=== PATIENT | male | born 1990 | race African-American/Black ===

== ENCOUNTER 2025-09-10 23:41 | Emergency (ER) | payer MEDICAID ==
[~2025-09-10] VITALS: Ht 180.3 cm; Wt 107.0 kg
[2025-09-10 23:43] VITALS: O2SAT 98
[2025-09-11] MEDS: ACETAMINOPHEN 325MG TABLET PO ONE (00:29)
[2025-09-11] MEDS: METHOCARBAMOL 750MG TABLET PO SCH (00:30)
[2025-09-11] MEDS: KETOROLAC 30MG/ML VIAL IM ONE (00:30)
[2025-09-11 00:48] LABS: CLARITY URINE CLEAR (CLEAR); COLOR URINE YELLOW (YELLOW); GLUCOSE URINE NEGATIVE (NEGATIVE); KETONES URINE TRACE (NEGATIVE); LEUKOCYTE ESTERASE URINE NEGATIVE (NEGATIVE); NITRITE URINE NEGATIVE (NEGATIVE); OCCULT BLOOD URINE NEGATIVE (NEGATIVE); PH URINE 5.5 (4.5-8.0); PROTEIN URINE TRACE (NEGATIVE); SPECIFIC GRAVITY URINE 1.035 (1.005-1.030); UROBILINOGEN URINE 1.0 E.U./dL (0.2-1.0)
[2025-09-11 01:13] LABS: *AMPHETAMINES SCREEN URINE NEGATIVE (NEGATIVE); *BARBITURATES SCREEN URINE NEGATIVE (NEGATIVE); *BENZODIAZEPINES SCREEN URINE NEGATIVE (NEGATIVE); *COCAINE SCREEN URINE NEGATIVE (NEGATIVE); METHADONE URINE SCREEN NEGATIVE (NEGATIVE)
[2025-09-11 01:14] LABS: CANNABINOID URINE SCREEN PRESUMPTIVE POSITIVE (NEGATIVE); ECSTASY MDMA SCREEN URINE NEGATIVE (NEGATIVE); OPIATES URINE SCREEN NEGATIVE (NEGATIVE); PHENCYCLIDINE URINE SCREEN NEGATIVE (NEGATIVE)
[2025-09-11] MEDS ORDERED: IBUP-2028 MT (01:24)
[2025-09-11] MEDS ORDERED: LIDO-53 TP (01:24)
[2025-09-11] MEDS ORDERED: METH-653 MT (01:24)
[2025-09-11 01:40] VITALS: BP 122/65; PULSE 87; RESP 16; TEMP 37; O2SAT 100
[2025-09-11 01:40] LABS: BACTERIA URINE TRACE; RBC URINE NONE SEEN /hpf (0-2); SQUAMOUS EPITHELIAL CELL URINE RARE /lpf (RARE/1+); WBC URINE 0-2 /hpf (0-2)
[2025-09-11 01:41] LABS: CALCIUM OXALATE CRYSTALS URINE 1+ /lpf
== END 2025-09-11 01:44 | disposition home or self-care (01) ==
LOC: ER 23:41
DX: M62.830 Muscle spasm of back (principal); M54.16 Radiculopathy, lumbar region; I10 Essential (primary) hypertension; Z87.891 Personal history of nicotine dependence
CPT/HCPCS: 99284; 72100; 80305; 96372; 81003; J1885